=== PATIENT | male | born 1995 | race Hispanic/Latino ===

== ENCOUNTER 2019-08-14 21:53 | Emergency (ER) | payer SELFPAY | END 2019-08-14 23:14 | disposition home or self-care (01) | LOC: EDH 21:53 | DX: S62.201A Unspecified fracture of first metacarpal bone, right hand, initial encounter for closed fracture (principal); Z72.0 Tobacco use; W22.8XXA Striking against or struck by other objects, initial encounter; Y93.67 Activity, basketball; Y92.39 Other specified sports and athletic area as the place of occurrence of the external cause; Y99.8 Other external cause status | CPT/HCPCS: 29125; 73130 ==

== ENCOUNTER 2025-05-04 13:18 | Emergency (ER) | payer SELFPAY ==
[~2025-05-04] VITALS: Ht 182.9 cm; Wt 79.4 kg
--- NOTE | 2025-05-04 14:45 | NUR ---
PATIENT CARE ASSUMED AT THIS TIME.
--- NOTE | 2025-05-04 16:13 | ERN ---
ED Note History of Present Illness Stated Complaint: SWOLLEN UVULA Chief Complaint: Other Problems Time Seen by MD: 13:23 Time Seen by Midlevel: 13:25 Dictation: 29 y/o male c/o swollen uvula. States he noticed it today. States he smokes cigars everyday. Denies any fever, cough, congestion. Allergies: Coded Allergies: No Known Drug Allergies (Unverified Allergy, Unknown, 08/15/19) Past Medical History Past Medical History: No Pertinent History Surgical History: None Review of System Dictation Constitutional: Negative for fever,chills, and weight loss Eyes: Negative for injury, pain,redness, and discharge ENT: Negative for injury, bleeding of swollen uvula Cardiovascular: Negative for chest pain, palpitations, and edema Respiratory: Negative for shortness of breath, cough, and wheezing, Abdomen/GI: Negative for abdominal pain, nausea, vomiting, diarrhea, and constipation Back: Negative for injury and pain : Negative for injury, bleeding and discharge MS/Extremity: Negative for injury and deformity Skin: Negative for rash, and discoloration Neuro: Negative for headache, weakness, numbness, tingling, and seizure Psych: Negative for suicide ideation, homicidal ideation, and hallucinations Review of Systems: was completed Initial Vital Sign VS Vital Signs Date Time Temp Pulse Resp B/P (MAP) Pulse Ox O2 Delivery O2 Flow Rate FiO2 05/04/25 13:19 97.7 67 16 150/78 99 Room Air 05/04/25 14:45 0 21 Physical Exam Dictation General: awake, alert, NAD Head/Face: Normocephalic, atraumatic Eyes: PERRL, EOMI, vision at baseline ENT: oral cavity clear, TMs clear, no signs of infection, minimal swelling of the uvula with some erythema Neck: Trachea midline, supple, no nuchal rigidity Cardiovascular: RRR, normal S1/S2, No MRGs, no JVD Respiratory: CTAB, no respiratory distress, No rales or wheezes Abdomen: Soft, non-tender, non-distended, normal bowel sounds, no guarding or rebound. Skin: Warm, dry, normal turgor, no rash MS/Extremity: Pulses equal, no cyanosis, neurovascular intact, FROM Neuro: COAx4, GCS 15, strength 5/5, CN 2-12 intact, normal cerebellar exam, normal gait, Psych: Normal behavior, mood, and affect normal Results (Laboratory/Radiology) Laboratory/Radiology Laboratory Tests Test 05/04/25 15:48 Group A Streptococcus Rapid negative (NEGATIVE) Labs Reviewed?: Yes ED Course ED Course Orders Procedure Category Date Status Time Rapid (Group A Strep) LAB 05/04/25 Complete 13:33 Diphenhydramine Hcl PHA 05/04/25 Complete (Benadryl Inj) 14:00 Dexamethasone 4mg/Ml PHA 05/04/25 Complete 1ml Vial (Dexametha 14:00 Ketorolac PHA 05/04/25 Complete Tromethamine 15mg/Ml 14:00 Current Medications Medications (Trade) Dose Ordered Sig/Michael Route PRN Reason Start Time Stop Time Status Last Admin Dose Admin Dexamethasone Sodium Phosphate (dexaMETHasone 4MG/ML 1ML VIAL) 6 mg ONCE ONCE IM 05/04/25 14:00 05/04/25 14:01 DC 05/04/25 15:18 Diphenhydramine HCl (BENAdryl INJ) 25 mg ONCE ONCE IM 05/04/25 14:00 05/04/25 14:01 DC Ketorolac Tromethamine (toRADol) 15 mg ONCE ONCE IM 05/04/25 14:00 05/04/25 14:01 DC 05/04/25 15:19 Vital Signs Date Time Temp Pulse Resp B/P (MAP) Pulse Ox O2 Delivery O2 Flow Rate FiO2 05/04/25 16:23 98.2 88 20 125/73 100 Room Air* 0 21 05/04/25 14:45 98.2 93 20 127/73 100 Room Air* 0 21 05/04/25 13:19 97.7 67 16 150/78 99 Room Air Medical Decision Making MDM MDM: 29 y/o male c/o swollen uvula. States he noticed it today. States he smokes cigars everyday. Denies any fever, cough, congestion. Swabs are negative for strep. Patient vital signs have remained stable, no were angioedema, no airway compromise. Patient had not drooling, speaking in full sentences, no muffled voice. More than likely patient has irritation uveitis related to cigar smoking. Discussed with the patient to stop smoking and follow up PCP in 1-2 days. Also discussed to return to the hospital if he has any worsening symptoms. Differential diagnosis: Strep, pharyngitis, uveitis Rationale: Tests considered and ordered secondary to shared decision making include: Previous outside records reviewed: Old ER visits. Risk of complication and/or morbidity or mortality of patient management: None Medications-Per medication reconciliation Need for hospitalization: Patient does not meet criteria for hospitalization. Need for emergency major/minor surgery: No There are no social concerns with this patient. Prescription drug management Prescriptions will include symptomatic care Patient's prior external medical records from other ER visits were reviewed by me as indicated. Prior testing and results from previous visits were reviewed. Prior tests were taken into account with medical decision making and resource utilization, independent historian/historians were used to obtain complete medical history. I independently interpreted the test that were performed, results were reviewed by me and considered findings on radiology if ordered. Medical management and examination interpretation discussions were had by me with other qualified healthcare professionals as indicated for the patient's care. DX & DISP Disposition: Discharge Departure Impression: Primary Impression: Uvulitis Condition: Stable Additional Instructions: Stop smoking. You can take NSAIDs [id number] like Motrin or Advil. Follow up with your primary doctor in 1-2 days. Comes off with a for any worsening symptoms. Referrals: SELF,REFERRAL (PCP) I have reviewed the case, and I agree with, Diagnosis and Plan TEODORA MATHEW NP May 04, 2025 16:13 EITAN MALAVE DO May 04, 2025 17:46
[2025-05-04 16:23] VITALS: BP 125/73; PULSE 88; RESP 20; TEMP 98.2; O2SAT 100
== END 2025-05-04 16:50 | disposition home or self-care (01) ==
LOC: EDH 13:18
DX: K12.2 Cellulitis and abscess of mouth (principal)
CPT/HCPCS: 99284; 87880; 96372 ×2; J1100; J1885; J1200